=== PATIENT | male | born 1940 | race Two or more races ===

== ENCOUNTER 2025-05-09 08:13 | Outpatient (CLI) | payer OTHER | END 2025-05-09 08:31 | disposition home or self-care (01) | LOC: MRI 08:13 | PROVIDERS: ATTEND Otolaryngology | DX: R22.1 Localized swelling, mass and lump, neck (principal); H60.10 Cellulitis of external ear, unspecified ear; H61.23 Impacted cerumen, bilateral | CPT/HCPCS: 70553; 76536; Q9965 ==